=== PATIENT | male | born 1960 | race Two or more races ===

== ENCOUNTER 2017-04-08 12:29 | Emergency (ER) | payer SELFPAY ==
[~2017-04-08] VITALS: Ht 182.9 cm; Wt 103.0 kg
[2017-04-08] MEDS ORDERED: OXYcodone/APAP 5/325MG TABLET ONE (13:22)
[2017-04-08] MEDS ORDERED: OXYcodone/APAP 5/325MG TABLET PO ONE (13:30)
[2017-04-08 13:54] LABS: HEMATOCRIT 45.2 % (39.2-51.8); HEMOGLOBIN 15.5 g/dL (13.7-18.0); WHITE BLOOD COUNT 4.6 x10^3/uL (3.4-10)
[2017-04-08 14:04] LABS: BLOOD UREA NITROGEN 18 mg/dL (7-18)
[2017-04-08 14:29] VITALS: BP 158/78
== END 2017-04-08 14:39 | disposition home or self-care (01) ==
LOC: ED 14:35
DX: Z76.0 Encounter for issue of repeat prescription (principal); E11.9 Type 2 diabetes mellitus without complications
CPT/HCPCS: 36415; 80048; 82040; 85025; 99284

== ENCOUNTER 2017-04-14 14:03 | Emergency (ER) | payer MEDICAID, OTHER ==
[~2017-04-14] VITALS: Ht 182.9 cm; Wt 104.4 kg
[2017-04-14] MEDS ORDERED: HYDROmorphone 1 MG/ML, 1ML ONE (15:30)
[2017-04-14] MEDS ORDERED: ONDANSETRON 2MG/ML, 2ML IVPush ONE (15:30)
[2017-04-14] MEDS ORDERED: SODIUM CHLORIDE 0.9% 1,000ML IVBOLUS ONE (15:30)
[2017-04-14] MEDS ORDERED: SODIUM CHLORIDE FLUSH 10ML SYR IVF ONE (15:30)
[2017-04-14] MEDS ORDERED: HYDROmorphone 1 MG/ML, 1ML IVPush PRN (15:30)
[2017-04-14 15:49] LABS: HEMATOCRIT 45.1 % (39.2-51.8); HEMOGLOBIN 15.5 g/dL (13.7-18.0); WHITE BLOOD COUNT 6.4 x10^3/uL (3.4-10)
[2017-04-14 15:52] LABS: ASPARTATE AMINO TRANSFERASE 63 U/L (15-37); BLOOD UREA NITROGEN 16 mg/dL (7-18)
[2017-04-14 16:55] VITALS: BP 162/90
== END 2017-04-14 17:47 | disposition home or self-care (01) ==
LOC: ED 17:12
DX: M79.661 Pain in right lower leg (principal); M79.662 Pain in left lower leg; M79.1 Myalgia; M54.9 Dorsalgia, unspecified; G89.29 Other chronic pain; E11.9 Type 2 diabetes mellitus without complications
CPT/HCPCS: 36415; 80053; 85025; 93970; 96374; 99285; J1170

== ENCOUNTER 2017-04-18 18:09 | Emergency (ER) | payer MEDICAID ==
[~2017-04-18] VITALS: Ht 182.9 cm; Wt 107.0 kg
[2017-04-18 18:11] VITALS: BP 169/91
[2017-04-18] MEDS ORDERED: DEXAMETHASONE 4 MG TABLET PO ONE (18:38)
[2017-04-18] MEDS ORDERED: DEXAMETHASONE 4 MG TABLET ONE ×2 (18:42→18:43)
[2017-04-18 19:21] LABS: HEMATOCRIT 41.2 % (39.2-51.8); HEMOGLOBIN 14.2 g/dL (13.7-18.0); WHITE BLOOD COUNT 5.4 x10^3/uL (3.4-10)
[2017-04-18 19:32] LABS: ASPARTATE AMINO TRANSFERASE 50 U/L (15-37); BLOOD UREA NITROGEN 22 mg/dL (7-18)
[2017-04-18] MEDS ORDERED: BACITRACIN ZINC OINT 500U/GM, 0.9 GM ONE (19:47)
== END 2017-04-18 20:06 | disposition home or self-care (01) ==
LOC: ED 18:48
DX: J20.8 Acute bronchitis due to other specified organisms (principal); J02.8 Acute pharyngitis due to other specified organisms; B97.89 Other viral agents as the cause of diseases classified elsewhere; L89.892 Pressure ulcer of other site, stage 2; E11.9 Type 2 diabetes mellitus without complications
CPT/HCPCS: 36415; 71020; 80053; 82962; 85025; 99285

== ENCOUNTER 2017-05-11 21:39 | Emergency (ER) | payer MEDICAID ==
[~2017-05-11] VITALS: Ht 182.9 cm; Wt 107.1 kg
[2017-05-11] MEDS ORDERED: HYDROcodone/APAP 5/325 TABLET ONE (22:58)
[2017-05-11] MEDS ORDERED: METHOCARBAMOL 750 MG TABLET ONE (22:58)
[2017-05-11] MEDS ORDERED: METHOCARBAMOL 750 MG TABLET PO ONE (23:00)
[2017-05-11] MEDS ORDERED: HYDROcodone/APAP 5/325 TABLET PO ONE (23:00)
[2017-05-11 23:08] LABS: BASOPHILS % (AUTO) 0 % (0-1); EOSINOPHILS # (AUTO) 0.15 x10^3/uL (0-0.4); EOSINOPHILS % (AUTO) 3 % (1-7); LYMPHOCYTES % (AUTO) 34 % (22-44); MD NO; MEAN CORPUSCULAR HEMOGLOBIN 33.1 pg (27.5-34.5); MEAN CORPUSCULAR HGB CONC 34.4 g/dL (33.2-36.2); MEAN CORPUSCULAR VOLUME 96.2 fL (81-97); MEAN PLATELET VOLUME 8.4 fL (7.4-10.4); MONOCYTES # (AUTO) 0.47 x10^3/uL (0.2-0.8); MONOCYTES % (AUTO) 8 % (2-9); NEUTROPHILS # (AUTO) 3.27 x10^3/uL (1.8-6.8); NEUTROPHILS % (AUTO) 55 % (42-75); PLATELET COUNT 188 x10^3/uL (130-400); RED BLOOD COUNT 4.85 x10^6/uL (4.38-5.82); RED CELL DISTRIBUTION WIDTH 12.9 % (9.4-14.8)
[2017-05-11 23:19] LABS: ALBUMIN 3.2 g/dL (3.4-5.0); ANION GAP 5 mmol/L (5-15); CALCIUM 8.8 mg/dL (8.5-10.1); CHLORIDE 108 mmol/L (98-107); CREATININE 1.05 mg/dL (0.7-1.3)
[2017-05-12] VITALS: BP 149/83
== END 2017-05-12 00:03 | disposition home or self-care (01) ==
LOC: ED 23:59
DX: S39.012A Strain of muscle, fascia and tendon of lower back, initial encounter (principal); I10 Essential (primary) hypertension; G89.29 Other chronic pain; M62.838 Other muscle spasm; E11.9 Type 2 diabetes mellitus without complications; R05 Cough; X58.XXXA Exposure to other specified factors, initial encounter; Y93.89 Activity, other specified; Y92.89 Other specified places as the place of occurrence of the external cause; Y99.8 Other external cause status
CPT/HCPCS: 36415; 71045; 80048; 82040; 85025; 93005; 99285

== ENCOUNTER 2017-10-04 12:00 | Inpatient (IN) | payer MEDICAID ==
[~2017-10-04] VITALS: Ht 188 cm; Wt 104.5 kg
[2017-10-04] MEDS ORDERED: MAALOX/HYOSCYAMINE/LIDOCAINE 45 ML BTL PO ONE (12:30)
[2017-10-04] MEDS ORDERED: SODIUM CHLORIDE FLUSH 10ML SYR IVF ONE (12:30)
[2017-10-04] MEDS ORDERED: SODIUM CHLORIDE 0.9% 1,000ML IVBOLUS ONE (12:30)
[2017-10-04] MEDS ORDERED: FAMOTIDINE 20 MG/2 ML IVP ONE (12:30)
[2017-10-04] MEDS ORDERED: MAALOX/HYOSCYAMINE/LIDOCAINE 45 ML BTL ONE (12:34)
[2017-10-04] MEDS ORDERED: FAMOTIDINE 20 MG/2 ML ONE (12:34)
[2017-10-04 12:53] LABS: BASOPHILS # (AUTO) 0.02 x10^3/uL (0-0.1); BASOPHILS % (AUTO) 0 % (0-1); EOSINOPHILS # (AUTO) 0.14 x10^3/uL (0-0.4); EOSINOPHILS % (AUTO) 2 % (1-7); LYMPHOCYTES # (AUTO) 1.78 x10^3/uL (1-3.4); LYMPHOCYTES % (AUTO) 25 % (22-44); MD NO; MEAN CORPUSCULAR HEMOGLOBIN 32.2 pg (27.5-34.5); MEAN CORPUSCULAR HGB CONC 34.5 g/dL (33.2-36.2); MEAN CORPUSCULAR VOLUME 93.2 fL (81-97); MEAN PLATELET VOLUME 8.6 fL (7.4-10.4); MONOCYTES # (AUTO) 0.58 x10^3/uL (0.2-0.8); MONOCYTES % (AUTO) 8 % (2-9); NEUTROPHILS # (AUTO) 4.74 x10^3/uL (1.8-6.8); NEUTROPHILS % (AUTO) 65 % (42-75); PLATELET COUNT 144 x10^3/uL (130-400); RED BLOOD COUNT 5.18 x10^6/uL (4.38-5.82); RED CELL DISTRIBUTION WIDTH 12.7 % (9.4-14.8)
[2017-10-04 13:05] LABS: ALBUMIN 3.8 g/dL (3.4-5.0); ANION GAP 9 mmol/L (5-15); CHLORIDE 101 mmol/L (98-107)
[2017-10-04 13:14] LABS: ALANINE AMINOTRANSFERASE 95 U/L (12-78); ALKALINE PHOSPHATASE 67 U/L (45-117); CREATININE 0.98 mg/dL (0.7-1.3); TOTAL PROTEIN 8.5 g/dL (6.4-8.2)
[2017-10-04] MEDS ORDERED: MORPHINE SULFATE 4 MG/ML, 1ML ONE (14:52)
[2017-10-04] MEDS ORDERED: morphine SULFATE 10 MG/ML, 1ML IVPush ONE (15:00)
[2017-10-04] MEDS: INSULIN LISPRO 100 UNITS/ML, PEN SQ-INSULIN SCH ×2 (16:10→21:00)
[2017-10-04 16:30] VITALS: BP 142/109
[2017-10-04] MEDS: POTASSIUM CHLORIDE 20 MEQ in LACTATED RINGERS 1,000 ML IV SCH ×2 (17:02→22:51)
[2017-10-04] MEDS: LABETALOL 5MG/ML, 20ML IVPush PRN (17:02)
[2017-10-04] MEDS: morphine SULFATE 10 MG/ML, 1ML IVPush PRN ×2 (17:41→22:47)
[2017-10-04 19:31] VITALS: BP 147/97
[2017-10-04 20:13] LABS: AMPHETAMINE SCREEN, URINE Positive (Negative); BARBITURATE SCREEN, URINE Negative (Negative); BENZODIAZEPINE SCREEN, URINE Negative (Negative); CANNABINOID SCREEN, URINE Negative (Negative); COCAINE SCREEN, URINE Negative (Negative); METHADONE SCREEN, URINE Negative (Negative); OPIATE SCREEN, URINE Positive (Negative)
[2017-10-04] MEDS: ENOXAPARIN 40 MG/0.4 ML SQ SCH (21:35)
[2017-10-05 01:23] VITALS: BP 138/94
[2017-10-05] MEDS: morphine SULFATE 10 MG/ML, 1ML IVPush PRN ×7 (01:38→22:53)
[2017-10-05] MEDS: ONDANSETRON 2MG/ML, 2ML IVPush PRN (04:24)
[2017-10-05] MEDS: POTASSIUM CHLORIDE 20 MEQ in LACTATED RINGERS 1,000 ML IV SCH (04:25)
[2017-10-05 04:27] LABS: BASOPHILS # (AUTO) 0.02 x10^3/uL (0-0.1); BASOPHILS % (AUTO) 0 % (0-1); EOSINOPHILS # (AUTO) 0.22 x10^3/uL (0-0.4); EOSINOPHILS % (AUTO) 4 % (1-7); LYMPHOCYTES # (AUTO) 2.62 x10^3/uL (1-3.4); LYMPHOCYTES % (AUTO) 46 % (22-44); MD NO; MEAN CORPUSCULAR HEMOGLOBIN 32.6 pg (27.5-34.5); MEAN CORPUSCULAR HGB CONC 34.9 g/dL (33.2-36.2); MEAN CORPUSCULAR VOLUME 93.6 fL (81-97); MEAN PLATELET VOLUME 9.1 fL (7.4-10.4); MONOCYTES # (AUTO) 0.47 x10^3/uL (0.2-0.8); MONOCYTES % (AUTO) 8 % (2-9); NEUTROPHILS # (AUTO) 2.42 x10^3/uL (1.8-6.8); NEUTROPHILS % (AUTO) 42 % (42-75); PLATELET COUNT 124 x10^3/uL (130-400); RED BLOOD COUNT 4.46 x10^6/uL (4.38-5.82); RED CELL DISTRIBUTION WIDTH 12.5 % (9.4-14.8)
[2017-10-05 04:30] LABS: ALBUMIN 2.9 g/dL (3.4-5.0); ANION GAP 5 mmol/L (5-15); CHLORIDE 106 mmol/L (98-107)
[2017-10-05 04:42] LABS: ALANINE AMINOTRANSFERASE 81 U/L (12-78); ALKALINE PHOSPHATASE 54 U/L (45-117); BILIRUBIN,TOTAL 1.2 mg/dL (0.2-1.0); CREATININE 0.76 mg/dL (0.7-1.3); TOTAL PROTEIN 6.9 g/dL (6.4-8.2)
[2017-10-05] MEDS: INSULIN LISPRO 100 UNITS/ML, PEN SQ-INSULIN SCH ×4 (07:00→20:07)
[2017-10-05 07:52] VITALS: BP 165/95
[2017-10-05] MEDS: LACTATED RINGERS 1,000 ML IV SCH ×3 (10:05→19:59)
[2017-10-05 13:24] VITALS: BP 150/90
[2017-10-05 19:09] VITALS: BP 159/88
[2017-10-05] MEDS: ENOXAPARIN 40 MG/0.4 ML SQ SCH (19:58)
[2017-10-06 01:26] VITALS: BP 146/82
[2017-10-06] MEDS: morphine SULFATE 10 MG/ML, 1ML IVPush PRN ×2 (02:47→06:53)
[2017-10-06] MEDS: LACTATED RINGERS 1,000 ML IV SCH ×5 (02:47→22:45)
[2017-10-06 04:46] LABS: BASOPHILS # (AUTO) 0.01 x10^3/uL (0-0.1); BASOPHILS % (AUTO) 0 % (0-1); EOSINOPHILS # (AUTO) 0.25 x10^3/uL (0-0.4); EOSINOPHILS % (AUTO) 5 % (1-7); LYMPHOCYTES # (AUTO) 2.22 x10^3/uL (1-3.4); LYMPHOCYTES % (AUTO) 49 % (22-44); MD NO; MEAN CORPUSCULAR HEMOGLOBIN 32.7 pg (27.5-34.5); MEAN CORPUSCULAR HGB CONC 34.9 g/dL (33.2-36.2); MEAN CORPUSCULAR VOLUME 93.8 fL (81-97); MEAN PLATELET VOLUME 8.8 fL (7.4-10.4); MONOCYTES % (AUTO) 7 % (2-9); NEUTROPHILS # (AUTO) 1.79 x10^3/uL (1.8-6.8); NEUTROPHILS % (AUTO) 39 % (42-75); PLATELET COUNT 118 x10^3/uL (130-400); RED CELL DISTRIBUTION WIDTH 12.4 % (9.4-14.8)
[2017-10-06 04:49] LABS: ALANINE AMINOTRANSFERASE 91 U/L (12-78); ALBUMIN 2.9 g/dL (3.4-5.0); ANION GAP 6 mmol/L (5-15); CALCIUM 8.5 mg/dL (8.5-10.1); CHLORIDE 104 mmol/L (98-107); CREATININE 0.75 mg/dL (0.7-1.3)
[2017-10-06 04:51] LABS: ALKALINE PHOSPHATASE 50 U/L (45-117); BILIRUBIN,TOTAL 0.9 mg/dL (0.2-1.0); TOTAL PROTEIN 6.6 g/dL (6.4-8.2)
[2017-10-06] MEDS: INSULIN LISPRO 100 UNITS/ML, PEN SQ-INSULIN SCH ×4 (07:00→22:43)
[2017-10-06 08:06] VITALS: BP 152/95
[2017-10-06] MEDS ORDERED: MAALOX/HYOSCYAMINE/LIDOCAINE 45 ML BTL PO ONE (10:30)
[2017-10-06 14:25] VITALS: BP 151/98
[2017-10-06 20:03] VITALS: BP 174/102
[2017-10-06 20:32] VITALS: BP 163/99
[2017-10-06] MEDS: ENOXAPARIN 40 MG/0.4 ML SQ SCH (21:47)
[2017-10-07 01:44] VITALS: BP 157/93
[2017-10-07] MEDS: LACTATED RINGERS 1,000 ML IV SCH (04:00)
[2017-10-07] MEDS: ONDANSETRON 2MG/ML, 2ML IVPush PRN ×2 (04:28→16:34)
[2017-10-07 06:23] LABS: CLOSTRIDIUM DIFFICILE ANTIGEN POSITIVE; CLOSTRIDIUM DIFFICILE TOXIN NEGATIVE (Negative)
[2017-10-07 07:58] VITALS: BP 160/109
[2017-10-07] MEDS: LISINOPRIL 20 MG TABLET PO SCH (08:22)
[2017-10-07] MEDS: INSULIN LISPRO 100 UNITS/ML, PEN SQ-INSULIN SCH ×4 (08:23→20:17)
[2017-10-07 12:49] VITALS: BP 150/93
[2017-10-07 19:18] VITALS: BP 170/99
[2017-10-07] MEDS: ENOXAPARIN 40 MG/0.4 ML SQ SCH (20:00)
[2017-10-07] MEDS: LABETALOL 5MG/ML, 20ML IVPush PRN (20:01)
[2017-10-07] MEDS ORDERED: FAMOTIDINE 20 MG TABLET PO SCH (21:00)
[2017-10-07] MEDS ORDERED: INSULIN HUMULIN 70/30, 3ML PEN SQ-INSULIN SCH (21:00)
[2017-10-08 01:49] VITALS: BP 153/87
[2017-10-08] MEDS: INSULIN LISPRO 100 UNITS/ML, PEN SQ-INSULIN SCH (07:00)
[2017-10-08 07:35] VITALS: BP 166/90
[2017-10-08] MEDS ORDERED: AMLO5TAB2 PO (07:57)
[2017-10-08] MEDS ORDERED: RANI150C PO (07:57)
[2017-10-08] MEDS ORDERED: HUM100VI SQ (07:57)
[2017-10-08] MEDS ORDERED: ONDA4TAB13 SL (07:57)
[2017-10-08] MEDS: LISINOPRIL 20 MG TABLET PO SCH ×2 (09:00→09:07)
== END 2017-10-08 11:00 | disposition home or self-care (01) | DRG 439 ==
LOC: ED 13:22 → EDIP 14:47 → 3NW 16:04
PROVIDERS: ADMIT Internal Medicine; ATTEND Internal Medicine
DX: K85.90 Acute pancreatitis without necrosis or infection, unspecified (principal); E87.1 Hypo-osmolality and hyponatremia; I11.9 Hypertensive heart disease without heart failure; E11.65 Type 2 diabetes mellitus with hyperglycemia; E86.0 Dehydration; K21.9 Gastro-esophageal reflux disease without esophagitis; Z79.4 Long term (current) use of insulin; Z82.49 Family history of ischemic heart disease and other diseases of the circulatory system; Z90.49 Acquired absence of other specified parts of digestive tract; Z83.3 Family history of diabetes mellitus; Z91.14 Patient's other noncompliance with medication regimen; Z91.19 Patient's noncompliance with other medical treatment and regimen
CPT/HCPCS: 36415; 74176; 76700; 80053; 80307; 82962; 83690; 83735; 84100; 84443; 84478; 85025; 87046; 87324; 87427; 89055; 93005; 96361; 96374; 96375; J1650; J2405; J3480; J2270; J7030; J7120; S0028

== ENCOUNTER 2018-01-11 10:33 | Emergency (ER) | payer MEDICAID ==
[~2018-01-11] VITALS: Ht 182.9 cm; Wt 85.0 kg
[~2018-01-11 10:33] MED LIST: AMLO5TAB2 PO; HUM100VI SQ; ONDA4TAB13 SL; RANI150C PO
[2018-01-11 10:37] VITALS: BP 145/91
== END 2018-01-11 13:27 | disposition left against medical advice (07) ==
LOC: ED 13:21
DX: G89.29 Other chronic pain (principal); M25.531 Pain in right wrist; J20.9 Acute bronchitis, unspecified; F17.200 Nicotine dependence, unspecified, uncomplicated; I10 Essential (primary) hypertension; E11.9 Type 2 diabetes mellitus without complications
CPT/HCPCS: 71046; 87081; 87147; 87880; 99285